=== PATIENT | female | born 1945 | race Caucasian/White ===

== ENCOUNTER 2017-09-13 01:25 | Inpatient (IN) | payer MEDICARE, OTHER ==
[~2017-09-13] VITALS: Ht 160 cm; Wt 54.0 kg
[2017-09-13 02:57] VITALS: BP 144/82
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
[2017-09-13] MEDS ORDERED: MAGNESIUM HYDROXIDE 30 ML UDC PO PRN (03:30)
[2017-09-13] MEDS ORDERED: TEMAZEPAM 7.5 MG CAPSULE PO PRN (03:30)
[2017-09-13] MEDS ORDERED: MAG HYDROX/AL HYDROX/SIMETH 30 ML UDC PO PRN (03:30)
[2017-09-13] MEDS ORDERED: LORAZEPAM 0.5 MG TABLET PO PRN (03:30)
--- NOTE | 2017-09-13 03:30 | NUR ---
GPS RN NOTES: PATIENT IS REQUESTING THAT HER EX- WILL BE NOTIFIED OF HER ADMISSION JORGE KRUSE TEL # [phone]. SHE ALSO REQUESTED NOT TO NOTIFY HER DAUGHTER REGARDING HER ADMISSION IN GPS. WILL ENDORSE TO THE INCOMING SHIFT.
[2017-09-13 08:00] VITALS: BP 153/74
[2017-09-13] MEDS ORDERED: ONDA4TAB11 PO (09:10)
[2017-09-13] MEDS ORDERED: SIME180C49 PO (09:10)
[2017-09-13] MEDS ORDERED: LISI10TA5 PO (09:10)
[2017-09-13] MEDS ORDERED: LEVE500T20 PO (09:10)
[2017-09-13] MEDS ORDERED: HYDR-552 PO (09:10)
[2017-09-13] MEDS ORDERED: METO25TA6 PO (09:10)
[2017-09-13] MEDS ORDERED: NIFE30TA2 PO (09:10)
[2017-09-13] MEDS ORDERED: ASPI-973 PO (09:12)
[2017-09-13] MEDS ORDERED: HYDROCODONE/APAP 5/325MG 1 EACH TABLET PO PRN (10:30)
[2017-09-13] MEDS ORDERED: ONDANSETRON 4 MG TAB.RAPDIS PO PRN (10:30)
[2017-09-13] MEDS: LEVETIRACETAM (250 MG) 250 MG TABLET PO SCH ×2 (11:16→21:11)
[2017-09-13] MEDS: METOPROLOL TARTRATE 25 MG TABLET PO SCH ×2 (11:27→21:12)
[2017-09-13] MEDS: NIFEdipine XL (30MG) 30 MG TAB PO SCH (11:28)
[2017-09-13] MEDS: LISINOPRIL (10MG) 10 MG TABLET PO SCH ×2 (11:28→21:13)
[2017-09-13] MEDS: busPIRone 5 MG TABLET PO SCH ×2 (12:00→17:00)
[2017-09-13 16:02] VITALS: BP 116/67
--- NOTE | 2017-09-13 19:10 | NUR ---
RN NOTE: PATIENT REFUSED 1700 MED.
[2017-09-13 19:50] VITALS: BP 131/61
[2017-09-13] MEDS ORDERED: QUETIAPINE FUMARATE 25 MG TABLET PO SCH (20:00)
[2017-09-13] MEDS: ACETAMINOPHEN 325 MG TABLET PO PRN (20:13)
[2017-09-14 07:04] LABS: BASOPHILS % (AUTO) 0.7 % (0.0-2.0); EOSINOPHILS # (AUTO) 0.1 /CMM (0.0-0.7); EOSINOPHILS % (AUTO) 0.9 % (0.0-6.0); HEMATOCRIT 40 % (33-45); HEMOGLOBIN 13.7 g/dL (11.5-14.8); LYMPHOCYTES # (AUTO) 2.2 /CMM (0.8-4.8); LYMPHOCYTES % (AUTO) 29.8 % (20.0-44.0); MEAN CORPUSCULAR HEMOGLOBIN 31 PG (26.0-33.0); MEAN CORPUSCULAR HGB CONC 34 g/dl (31.0-36.0); MEAN CORPUSCULAR VOLUME 91 fL (82-100); MONOCYTES # (AUTO) 0.7 /CMM (0.1-1.30); MONOCYTES % (AUTO) 8.8 % (2.0-12.0); NEUTROPHILS # (AUTO) 4.4 /CMM (1.8-8.9); NEUTROPHILS % (AUTO) 59.8 % (43.0-81.0); PLATELET COUNT (AUTO) 289 /CMM (150-450); RDW COEFFICIENT OF VARIATION 13.9 (11.5-15.0); RED BLOOD CELL COUNT(AUTO) 4.38 MIL/uL (4.0-5.2); WHITE BLOOD COUNT (AUTO) 7.4 K/uL (4.3-11.0)
[2017-09-14 07:17] LABS: ALANINE AMINOTRANSFERASE 29 U/L (12-78); ALBUMIN 3.8 g/dL (3.4-5.0); ALKALINE PHOSPHATASE 86 U/L (46-116); ASPARTATE AMINOTRANSFERASE 19 U/L (15-37); BILIRUBIN,TOTAL 0.4 mg/dL (0.2-1.0); CALCIUM, SERUM 9.7 mg/dL (8.5-10.1); CARBON DIOXIDE 24 mmol/L (21-32); CHLORIDE 106 mmol/L (98-107); CREATININE 1.1 mg/dL (0.6-1.3); GLUCOSE 121 mg/dL (74-106); POTASSIUM 3.7 mmol/L (3.5-5.1); SODIUM SERUM 142 mmol/L (136-145); TOTAL PROTEIN, SERUM 7.4 g/dL (6.4-8.2); UREA NITROGEN, BLOOD 20 mg/dL (7-18)
[2017-09-14 07:22] LABS: CHOLESTEROL 162 mg/dL (<200); HDL CHOLESTEROL 67 mg/dL (40-60); LDL 81 mg/dL (0-99); TRIGLYCERIDES 75 mg/dL (30-150)
[2017-09-14 08:00] VITALS: BP 123/75
[2017-09-14] MEDS: NIFEdipine XL (30MG) 30 MG TAB PO SCH (08:39)
[2017-09-14] MEDS: LISINOPRIL (10MG) 10 MG TABLET PO SCH ×2 (08:40→16:50)
[2017-09-14] MEDS: LEVETIRACETAM (250 MG) 250 MG TABLET PO SCH ×2 (08:40→20:27)
[2017-09-14] MEDS: METOPROLOL TARTRATE 25 MG TABLET PO SCH ×2 (08:40→16:49)
[2017-09-14] MEDS: busPIRone 5 MG TABLET PO SCH ×2 (08:40→16:49)
--- NOTE | 2017-09-14 11:42 | NUR ---
Initial Discharge Plan: Patient resides at [address] [facility] [address]. Patient lives there with her daughter. Patient states that she is unsure if she wants to return. SW contacted patient's daughter Rosamaria [phone]. Rosamaria stated that she does not feel it is safe for her mother to return to the house. Patient is paranoid and attempts to run away from the home, according to patient's daughter. Rosamaria stated that a locked facility might be the safest option for patient. SW to follow up with MD and facilitate safe and proper discharge.
[2017-09-14 16:00] VITALS: BP 104/71
[2017-09-14 20:00] VITALS: BP 110/70
[2017-09-14] MEDS: QUETIAPINE FUMARATE 25 MG TABLET PO SCH (20:26)
[2017-09-15 08:00] VITALS: BP 111/76
[2017-09-15] MEDS: METOPROLOL TARTRATE 25 MG TABLET PO SCH ×2 (08:26→17:18)
[2017-09-15] MEDS: NIFEdipine XL (30MG) 30 MG TAB PO SCH (08:27)
[2017-09-15] MEDS: LISINOPRIL (10MG) 10 MG TABLET PO SCH ×2 (08:27→17:18)
[2017-09-15] MEDS: busPIRone 5 MG TABLET PO SCH (08:36)
[2017-09-15] MEDS: LEVETIRACETAM (250 MG) 250 MG TABLET PO SCH ×2 (08:36→20:25)
[2017-09-15] MEDS: ACETAMINOPHEN 325 MG TABLET PO PRN (13:01)
--- NOTE | 2017-09-15 13:02 | NUR ---
RN-CO: TYLENOL GIVEN FOR C/O LOWER BACK PAIN 11/09.
[2017-09-15 16:00] VITALS: BP 106/72
[2017-09-15] MEDS: SERTRALINE HCL 25 MG TABLET PO SCH (17:18)
--- NOTE | 2017-09-15 18:58 | NUR ---
GPS/RN PT PROVIDED URINE SPECIMEN CUP AND REMINDED THOROUGH THE SHIFT TO COLLECT URINE SAMPLE. PT PROMISED TO COLLECT. WILL ENDORSE TO [facility] TO FOLLOW UP.
[2017-09-15] MEDS: QUETIAPINE FUMARATE 25 MG TABLET PO SCH (19:29)
[2017-09-15 20:00] VITALS: BP 130/85
--- NOTE | 2017-09-15 23:29 | NUR ---
GPS/RN NOTES PT STATED SHE IS HAVING A HARD TIME SLEEPING. OFFERED PT SLEEPING MEDICATION AND STATED SHE WANTS IT. UPON ENTERING THE ROOM WITH MEDICATION, PT REFUSED AND STATED "I AM EXHAUSTED. I DO NOT NEED A SLEEPING PILL." EXPLAINED THE RISKS AND BENEFITS X3, STILL NOTED WITH REFUSAL. HONORED PT'S DIGNITY AND THE RIGHTS TO REFUSE. WILL CONTINUE TO MONITOR.
[2017-09-16] MEDS: ACETAMINOPHEN 325 MG TABLET PO PRN ×2 (05:32→20:09)
[2017-09-16 07:08] LABS: HOMOCYSTEINE, PLASMA 20.8 umol/L (0.0-15.0)
[2017-09-16 08:00] VITALS: BP 123/71
[2017-09-16 08:32] LABS: APPEARANCE,URINE CLEAR (CLEAR); BILIRUBIN,URINE NEGATIVE (NEGATIVE); BLOOD, URINE TRACE-INTA Ery/uL (NEGATIVE); COLOR,URINE YELLOW (YELLOW); KETONES,URINE NEGATIVE (NEGATIVE); LEUKOCYTE ESTERASE ,URINE NEGATIVE (NEGATIVE); NITRITE, URINE NEGATIVE (NEGATIVE); PROTEIN,URINE NEGATIVE (NEGATIVE); UGLUCOSE NEGATIVE (NEGATIVE); UROBILINOGEN,URINE 0.2 EU/dL (0.2)
[2017-09-16] MEDS: METOPROLOL TARTRATE 25 MG TABLET PO SCH ×2 (09:01→17:32)
[2017-09-16] MEDS: LEVETIRACETAM (250 MG) 250 MG TABLET PO SCH ×2 (09:01→20:05)
[2017-09-16] MEDS: LISINOPRIL (10MG) 10 MG TABLET PO SCH ×2 (09:02→17:32)
[2017-09-16] MEDS: NIFEdipine XL (30MG) 30 MG TAB PO SCH (09:02)
[2017-09-16 10:12] LABS: RBC,URINE 0-2 /HPF (0-2)
[2017-09-16 10:13] LABS: BACTERIA,URINE Rare /HPF (None Seen); SQUAMOUS EPITHELIAL CELL,UR Few /HPF (None Seen)
[2017-09-16 16:00] VITALS: BP 144/68
[2017-09-16 16:05] VITALS: BP 144/68
[2017-09-16] MEDS: SERTRALINE HCL 25 MG TABLET PO SCH (17:31)
[2017-09-16 20:00] VITALS: BP 144/75
[2017-09-16] MEDS: QUETIAPINE FUMARATE 25 MG TABLET PO SCH (20:05)
--- NOTE | 2017-09-16 20:09 | NUR ---
GPS RN NOTES: PATIENT C/O LOWER BACK PAIN. PATIENT RATES PAIN 3/10. ADMINISTERED ACETAMINOPHEN 650MG PO ORDERED. WILL CONTINUE TO MONITOR.
[2017-09-17 08:00] VITALS: BP 159/71
[2017-09-17] MEDS: NIFEdipine XL (30MG) 30 MG TAB PO SCH (08:00)
[2017-09-17] MEDS: LEVETIRACETAM (250 MG) 250 MG TABLET PO SCH ×2 (08:00→20:49)
[2017-09-17] MEDS: LISINOPRIL (10MG) 10 MG TABLET PO SCH ×2 (08:00→16:54)
[2017-09-17] MEDS: METOPROLOL TARTRATE 25 MG TABLET PO SCH ×2 (08:01→16:53)
[2017-09-17] MEDS: ACETAMINOPHEN 325 MG TABLET PO PRN (10:03)
[2017-09-17] MEDS ORDERED: hydrALAZINE HCL 25 MG TABLET PO PRN (13:00)
[2017-09-17 16:00] VITALS: BP 117/58
[2017-09-17] MEDS: SERTRALINE HCL 25 MG TABLET PO SCH (16:54)
--- NOTE | 2017-09-17 18:38 | NUR ---
GPS RN CLOSING NOTES A/O X3, PATIENT IS AMBULATORY. REPORTED HEADACHE TODAY, MEDICATED WITH TYLENOL 650MG PO PRN, EFFECTIVE. MAINTAIN FALL PRECAUTION, CONTINUE CARE ON GPS AND BEHAVIOR MANAGEMENT PER MD. WILL ENDORSE TO ONCOMING RN.
[2017-09-17 20:04] VITALS: BP 125/71
[2017-09-17] MEDS: QUETIAPINE FUMARATE 25 MG TABLET PO SCH (20:49)
[2017-09-17 22:47] VITALS: BP 93/55
[2017-09-17 23:43] VITALS: BP 135/80
[2017-09-18 08:00] VITALS: BP_SYST 128; BP_SYST 97; BP_DIAS 57; BP_DIAS 70
[2017-09-18] MEDS: LEVETIRACETAM (250 MG) 250 MG TABLET PO SCH ×2 (08:59→21:00)
[2017-09-18] MEDS: METOPROLOL TARTRATE 25 MG TABLET PO SCH ×2 (09:56→16:40)
[2017-09-18] MEDS: LISINOPRIL (10MG) 10 MG TABLET PO SCH ×2 (09:56→16:39)
[2017-09-18] MEDS: NIFEdipine XL (30MG) 30 MG TAB PO SCH (09:56)
[2017-09-18] MEDS: ACETAMINOPHEN 325 MG TABLET PO PRN (10:41)
[2017-09-18 16:00] VITALS: BP 115/59
[2017-09-18 19:34] VITALS: BP 112/51
[2017-09-18] MEDS ORDERED: QUETIAPINE FUMARATE 25 MG TABLET PO SCH (20:00)
[2017-09-19 08:00] VITALS: BP 110/59
[2017-09-19] MEDS: LEVETIRACETAM (250 MG) 250 MG TABLET PO SCH ×2 (08:37→21:42)
[2017-09-19] MEDS: NIFEdipine XL (30MG) 30 MG TAB PO SCH (08:37)
[2017-09-19] MEDS: LISINOPRIL (10MG) 10 MG TABLET PO SCH ×2 (08:37→16:07)
[2017-09-19] MEDS: METOPROLOL TARTRATE 25 MG TABLET PO SCH ×2 (08:38→16:07)
[2017-09-19 16:00] VITALS: BP 130/90
[2017-09-19] MEDS: ACETAMINOPHEN 325 MG TABLET PO PRN (16:42)
--- NOTE | 2017-09-19 16:42 | NUR ---
GPS/RN PATIENT REPORTS 5/10 HEADACHE, ADMINISTERED TYLENOL 650 MG PER PT REQUEST, WILL CONTINUE TO MONITOR.
[2017-09-19 20:00] VITALS: BP 131/68
[2017-09-19] MEDS: QUETIAPINE FUMARATE 25 MG TABLET PO SCH (21:42)
[2017-09-20 08:00] VITALS: BP 122/57
[2017-09-20] MEDS: NIFEdipine XL (30MG) 30 MG TAB PO SCH (08:48)
[2017-09-20] MEDS: METOPROLOL TARTRATE 25 MG TABLET PO SCH ×2 (08:49→16:04)
[2017-09-20] MEDS: LEVETIRACETAM (250 MG) 250 MG TABLET PO SCH ×2 (08:49→20:43)
[2017-09-20] MEDS: LISINOPRIL (10MG) 10 MG TABLET PO SCH ×2 (08:49→16:04)
--- NOTE | 2017-09-20 15:22 | NUR ---
ironworker wire fence erector spoke to patient regarding her discharge plan, SW informed patient that she has been accepted [facility] [address] [place] [place] [address]. Patient stated that she was going to go with "Colin" patient stated that Colin was going to pick her up. SW informed patient that she would have to confirm with Colin and in order for SW to speak to Colin patient needs to authorize and sign an authorization form. GEORGE will follow-up.
--- NOTE | 2017-09-20 15:25 | NUR ---
GEORGE spoke to patient's daughter Rosamaria [phone]. Rosamaria stated that pt. staying with Colin was not an option as he stated to her that he cannot take care of her at this time. SW suggested that daughter call Colin and ask him to be clear with patient and tell pt. that staying with him was not an option at this time, otherwise patient will continue to believe that going with Colin is an option. Patient' daughter agreed and stated that she would like for pt. to be discharged to [facility] and hopes that pt. will agree to go. SW will follow-up.
--- NOTE | 2017-09-20 15:32 | NUR ---
GEORGE spoke to patient regarding discharge plan. Patient agreed to sign the authorization form so that GEORGE can speak to Colin. Patient wanted to call Colin with GEORGE in the room. Patient spoke to Colin and stated, "Are you going to pick me up so that we can go on a road trip and be together. Yes or no?" Patient handed the phone to GEORGE, GEORGE asked Colin if pt. living with him was an option, Colin stated, "not at this time." GEORGE asked Colin to be clear with pt. Colin informed pt. that living with him was not an option and that he could not take care of her at this time. Patient agreed that her only other option was going to [facility] and agreed to be discharged to the facility.
[2017-09-20 16:00] VITALS: BP 117/54
[2017-09-20] MEDS: QUETIAPINE FUMARATE 25 MG TABLET PO SCH ×3 (19:32→20:57)
[2017-09-20 19:59] VITALS: BP 113/71
--- NOTE | 2017-09-20 21:10 | NUR ---
PATIENT REFUSED TO TAKE HER SEROQUEL TONIGHT, EXPLAINED THE BENEFITS, OFFERED MEDS X2, STILL REFUSED, SHE SAID," NO PSYCH MEDS TONIGHT BECAUSE OF MY HEAD, AND MARTIN IS COMING TOMORROW, I WON'T SEE HIM."
[2017-09-20] MEDS: ACETAMINOPHEN 325 MG TABLET PO PRN (23:17)
--- NOTE | 2017-09-20 23:17 | NUR ---
TYLENOL 650 MG TAB PO GIVEN, PATIENT IS COMPLAINING OC ACHY BACK PAIN, 3/10 ON PAIN SCALE
[2017-09-21 08:00] VITALS: BP 127/53
[2017-09-21] MEDS: LEVETIRACETAM (250 MG) 250 MG TABLET PO SCH ×2 (08:05→20:09)
[2017-09-21] MEDS: ACETAMINOPHEN 325 MG TABLET PO PRN (08:24)
--- NOTE | 2017-09-21 08:33 | NUR ---
GPS/RN PATIENT REPORTS LOWER BACK PAIN, ADMINISTERED TYLENOL 650 MG PER PATIENT REQUEST, WILL CONTINUE TO MONITOR.
[2017-09-21] MEDS: METOPROLOL TARTRATE 25 MG TABLET PO SCH ×3 (09:00→16:59)
[2017-09-21] MEDS: NIFEdipine XL (30MG) 30 MG TAB PO SCH (09:00)
[2017-09-21] MEDS: LISINOPRIL (10MG) 10 MG TABLET PO SCH ×3 (09:00→16:59)
--- NOTE | 2017-09-21 09:33 | NUR ---
GPS/RN PATIENT BP 102/58 HR 70, HELD BP MEDICATIONS, LISINOPRIL 10 MG, METOPROLOL 25 MG, PROCARDIA 30 MG. WILL CONTINUE TO MONITOR.
[2017-09-21 09:35] VITALS: BP 102/58
[2017-09-21] MEDS ORDERED: MENTHOL/CETYLPYRD (CEPACOL) 1 LOZ LOZENGE PO PRN (12:30)
--- NOTE | 2017-09-21 14:17 | NUR ---
hop farm worker faxed the confidential morbidity report form to the [employer] (fax: [phone]).
[2017-09-21 16:00] VITALS: BP 108/59
--- NOTE | 2017-09-21 17:00 | NUR ---
GPS/RN PATIENT REFUSED LISINOPRIL 10 MG AND METOPROLOL 25 MG X 3, EXPLAINED RISKS AND BENEFITS, WILL CONTINUE TO ENCOURAGE TO COMPLY WITH MD REGIMEN.
[2017-09-21 19:55] VITALS: BP 105/59
[2017-09-21 20:00] VITALS: BP 105/59
[2017-09-21] MEDS ORDERED: QUETIAPINE FUMARATE 25 MG TABLET PO SCH (20:00)
[2017-09-22 07:07] LABS: BASOPHILS % (AUTO) 0.3 % (0.0-2.0); EOSINOPHILS # (AUTO) 0.1 /CMM (0.0-0.7); HEMATOCRIT 38 % (33-45); HEMOGLOBIN 13.1 g/dL (11.5-14.8); LYMPHOCYTES # (AUTO) 2.9 /CMM (0.8-4.8); LYMPHOCYTES % (AUTO) 22.9 % (20.0-44.0); MEAN CORPUSCULAR HEMOGLOBIN 31 PG (26.0-33.0); MEAN CORPUSCULAR HGB CONC 34 g/dl (31.0-36.0); MEAN CORPUSCULAR VOLUME 91 fL (82-100); MONOCYTES # (AUTO) 1.5 /CMM (0.1-1.30); MONOCYTES % (AUTO) 12.1 % (2.0-12.0); NEUTROPHILS % (AUTO) 63.7 % (43.0-81.0); PLATELET COUNT (AUTO) 286 /CMM (150-450); RDW COEFFICIENT OF VARIATION 13.5 (11.5-15.0); RED BLOOD CELL COUNT(AUTO) 4.23 MIL/uL (4.0-5.2); WHITE BLOOD COUNT (AUTO) 12.6 K/uL (4.3-11.0)
[2017-09-22 08:00] VITALS: BP 150/81
[2017-09-22] MEDS: LEVETIRACETAM (250 MG) 250 MG TABLET PO SCH (08:34)
[2017-09-22 08:35] VITALS: BP 111/63
[2017-09-22] MEDS: METOPROLOL TARTRATE 25 MG TABLET PO SCH (08:35)
[2017-09-22] MEDS: LISINOPRIL (10MG) 10 MG TABLET PO SCH (08:35)
[2017-09-22] MEDS: NIFEdipine XL (30MG) 30 MG TAB PO SCH (08:35)
[2017-09-22] MEDS ORDERED: CEFTAZIDIME 1 G VIAL IM SCH (10:30)
[2017-09-22] MEDS ORDERED: AZITHROMYCIN 500 MG in IV D5W 250 ML IV SCH (10:30)
[2017-09-22] MEDS ORDERED: LINEZOLID RTU BAG 600 MG in PREMIX 1 EA IV SCH (10:30)
--- NOTE | 2017-09-22 10:47 | NUR ---
RN-CO: DR Graham her primary doctor, gave an order to discharge and discontinue the legal hold of the patient noted. Patient is calm and cooperative to care.Denied auditory and visual hallucination. Denied suicidal and homicidal ideation. No acute distress noted. Ms. Elza Farmer SOFTWARE APPLICATIONS DEVELOPER made aware, reviewed her labs and chest X Ray and ordered IV antibiotics x 7 days. Patient however denied pain and discomforts, except for the slight chest congestion. Patient's daughter Kat [phone] has been notified and in agreement with her discharge. Discharge papers was signed by the patient and she verbalized understanding. Advised her about fall prevention, and to comply with medications regularly. Call 911 for emergency.
--- NOTE | 2017-09-22 11:18 | NUR ---
RN-CO: Called [facility] to give report , placed RN on hold for a long time.
--- NOTE | 2017-09-22 12:30 | NUR ---
RN-CO: Patient was seen and examined by Elza Jones NP.
[2017-09-22] MEDS ORDERED: CYANOCOBALAMIN 1,000 MCG/ML VIAL IM SCH (13:00)
--- NOTE | 2017-09-22 13:15 | NUR ---
RN-CO: All belongings were given back to the patient and her valuables. Patient checked it one by one in front of the RN, EMT and ART STUDIO TEACHER( Roel Malagon) and ok'd it. She was picked up by " Vannesa" via yane. All health teachings were dischussed to her and she verbalized understanding. Report was given to "Leia Sharma RN.
--- NOTE | 2017-09-22 13:58 | NUR ---
Discharge Note: Patient was discharged to [facility] [address] [facility] [address]. ([phone]). Via med response. Patients daughter Rosamaria was notified and was agreeable with the discharge plan. Patient appeared calm and cooperative upon discharge. Patient denied suicidal and homicidal ideations upon discharge. Patient will follow-up with Dr. Lai and follow-up with psychiatrist Dr. Graham , at the facility. Facilitated info to IDT team who are in agreement with discharge arrangement. The multidisciplinary exitcare form was done, printed, signed, and given to the patient.
== END 2017-09-22 13:30 | DRG 885 ==
LOC: GPS 02:43
PROVIDERS: ADMIT Psychiatry & Neurology Psychosomatic Medicine; ATTEND Nurse Practitioner Acute Care
DX: F29 Unspecified psychosis not due to a substance or known physiological condition (principal); F01.50 Vascular dementia, unspecified severity, without behavioral disturbance, psychotic disturbance, mood disturbance, and anxiety; G93.40 Encephalopathy, unspecified; J18.9 Pneumonia, unspecified organism; E53.8 Deficiency of other specified B group vitamins; E78.5 Hyperlipidemia, unspecified; F41.9 Anxiety disorder, unspecified; K21.9 Gastro-esophageal reflux disease without esophagitis; Z86.73 Personal history of transient ischemic attack (TIA), and cerebral infarction without residual deficits; Z90.710 Acquired absence of both cervix and uterus; I10 Essential (primary) hypertension; F32.9 Major depressive disorder, single episode, unspecified; I70.90 Unspecified atherosclerosis; J04.0 Acute laryngitis; F25.0 Schizoaffective disorder, bipolar type; G40.909 Epilepsy, unspecified, not intractable, without status epilepticus
CPT/HCPCS: 36415; 70450-TC; 71045-TC; 80053-TC; 80061-TC; 81000-TC; 82746; 83090; 83921; 84443-TC; 85025-TC; 87081-TC; A4216; J0456; J0713; J2020; J7060